=== PATIENT | female | born 1990 | race Caucasian/White ===

== ENCOUNTER 2022-01-12 12:16 | Emergency (ER) | payer BC ==
[2022-01-12] MEDS ORDERED: Sodium Chloride 0.9% 10 ML Syringe FLUSH PRN (12:56)
[2022-01-12] MEDS ORDERED: Sodium Chloride 0.9% 1,000 ML IV STA (12:57)
[2022-01-12 14:08] LABS: CORONAVIRUS COVID-19 NAA NEGATIVE (NEGATIVE)
== END 2022-01-12 15:15 | disposition home or self-care (01) ==
LOC: JD.ED 12:16
DX: R19.7 Diarrhea, unspecified (principal); R11.2 Nausea with vomiting, unspecified; Z72.0 Tobacco use; Z20.822 Contact with and (suspected) exposure to COVID-19
CPT/HCPCS: 0240U; 36415; 80053; 81001; 85025; 86140; 96360; 99284; J3490; J7030

== ENCOUNTER 2022-03-02 07:47 | Emergency (ER) | payer BC ==
[2022-03-02] MEDS ORDERED: Aspirin 81 MG Tab.Chew PO ONE (08:21)
== END 2022-03-02 11:00 | disposition home or self-care (01) ==
LOC: JD.ED 07:47
DX: R07.89 Other chest pain (principal); I10 Essential (primary) hypertension
CPT/HCPCS: 36415; 71046; 80053; 84484; 85025; 85379; 93005; 99285; A9270; 93010; 99283